=== PATIENT | female | born 1960 | race Caucasian/White ===

== ENCOUNTER 2018-04-09 13:03 | Emergency (ER) | payer OTHER ==
[2018-04-09 13:03] VITALS: BMI 39.5
[2018-04-09 13:19] VITALS: PULSE 70; RESP 16
--- NOTE | 2018-04-09 13:48 | C.PDOC ---
History Of Present Illness 57 yr old female w/ hx of DM2, afib, HLD p/w severe pain and swelling to R breast. Pt notes R breast pain x5d, worsening 2d ago, with throbbing pain to R breast. No recent ABX. PT was seen by PMD: Dr. Haylee Mercado today and was sent here for further eval of Rt. breast. PT notes chills. No abdominal pain, constipation or diarrhea. No chest pain or sob. No headache, nausea or vomiting. No other com Time Seen by Provider: 04/09/18 13:34 Chief Complaint (Nursing): Abnormal Skin Integrity Past Medical History Vital Signs: Last Vital Signs Temp 99.2 F 04/09/18 16:29 Pulse 70 04/09/18 16:29 Resp 16 04/09/18 16:29 BP 146/81 04/09/18 16:29 Pulse Ox 100 04/09/18 16:29 - Medical History PMH: Arthritis, Atrial Fibrillation, Diabetes, HTN, Hypercholesterolemia Denies: Depression, Chronic Kidney Disease Family History: States: Unknown Family Hx - Social History Hx Tobacco Use: No Hx Alcohol Use: No Hx Substance Use: No - Immunization History Hx Tetanus Toxoid Vaccination: Yes (5 YRS AGO) Hx Influenza Vaccination: No Hx Pneumococcal Vaccination: No Review Of Systems Except As Marked, All Systems Reviewed And Found Negative. Constitutional: Positive for: Chills. Negative for: Fever Eyes: Negative for: Pain ENT: Negative for: Ear Pain Cardiovascular: Negative for: Chest Pain Respiratory: Negative for: Cough Gastrointestinal: Negative for: Nausea Genitourinary: Negative for: Dysuria Musculoskeletal: Negative for: Neck Pain Skin: Positive for: Other (pain or R breast) Physical Exam - Physical Exam Appears: Well, Non-toxic, No Acute Distress Skin: Warm, Other (R sided breast 3 oclock, cyst noted, overlying redness, quarter sized, no crepitus. ) Nose: Normal Oral Mucosa: Moist Chest: Symmetrical, No Deformity Cardiovascular: Rhythm Regular Respiratory: Normal Breath Sounds Gastrointestinal/Abdominal: Normal Exam Extremity: Normal ROM, No Tenderness Additional Physical Exam Comments: no meningeal signs ED Course And Treatment - Laboratory Results Result Diagrams: 04/09/18 15:20 04/09/18 15:20 O2 Sat by Pulse Oximetry: 98 Medical Decision Making Medical Decision Makin Yr old female w/ hx of DM2 p/w Mastitis to L breast. No recent abx. Will seek US to see ? Abscess. No d/c from L breast. No recent swimming. Pt notes only pain to breast. NO chest pain. No orthopnea, pnd or leg swelling. US unremarkable- no abscess Mild Leukocytosis w/ out sirs vitals EKG 70, NSR, No stemi. will have pt follow up w/ obgyn and w/ keflex. clear for d/c home Disposition - Disposition Referrals: Kait Michaels MD [Staff Provider] - Disposition: HOME/ ROUTINE Disposition Time: 16:25 Condition: GOOD Additional Instructions: MARILIN BURT, thank you for letting us take care of you today. Your provider was Dio Eller and you were treated for SENT BY PMD. The emergency medical care you received today was directed at your acute symptoms. If you were prescribed any medication, please fill it and take as directed. It may take several days for your symptoms to resolve. Return to the Emergency Department if your symptoms worsen, do not improve, or if you have any other problems. Please contact your doctor or call one of the physicians/clinics you have been referred to that are listed on the Patient Visit Information form that is included in your discharge packet. Bring any paperwork you were given at discharge with you along with any medications you are taking to your follow up visit. Our treatment cannot replace ongoing medical care by a primary care provider outside of the emergency department. Thank you for allowing the [facility] team to be part of your care today. If you had an X-Ray or CT scan: A Radiologist will review the ED reading if any change in treatment is needed we will contact you. If you had a blood, urine, or wound culture: It will take several days for the results, if any change in treatment is needed we will contact you. If you had an STI test: It will take 48 hours for the results. Please call after 1 week if you have not heard back. Prescriptions: Cephalexin [cephalexin] 500 mg PO Q6H 10 Days #40 cap Instructions: Mastitis Forms: [facility] ([place]) - Clinical Impression Clinical Impression: Mastitis in female
--- NOTE | 2018-04-09 14:40 | RAD ---
Date of service: 04/09/2018 HISTORY: R breast pain COMPARISON: No prior. TECHNIQUE: Chest PA and lateral FINDINGS: LUNGS: No active pulmonary disease. PLEURA: No significant pleural effusion identified. No pneumothorax apparent. CARDIOVASCULAR: Normal. OSSEOUS STRUCTURES: No significant abnormalities. VISUALIZED UPPER ABDOMEN: Normal. OTHER FINDINGS: None. IMPRESSION: No active disease.
[2018-04-09 15:23] LABS: BASO # 0.1 K/uL (0.0-0.2); BASO % 0.6 % (0.0-2.0); EOS # 0.1 K/uL (0.0-0.7); EOS % 0.8 % (0.0-4.0); HEMOGLOBIN 10.6 g/dL (11.0-16.0); LYMPH # 1.9 K/uL (1.0-4.3); LYMPH % 15.9 % (20.0-40.0); MEAN CELL VOLUME 79.7 fL (81.0-99.0); MEAN CORPUSCULAR HEMOGLOBIN 26.2 pg (27.0-31.0); MEAN CORPUSCULAR HGB CONC 32.9 g/dL (33.0-37.0); MEAN PLATELET VOLUME 8.2 fL (7.2-11.7); MONO # 1.1 K/uL (0.0-0.8); MONO % 8.9 % (0.0-10.0); NEUT % 73.8 % (50.0-75.0); RBC 4.05 Mil/uL (3.80-5.20); WHITE BLOOD COUNT 12.2 K/uL (4.8-10.8)
[2018-04-09 15:38] LABS: ALB/GLOB RATIO 1.4 (1.0-2.1); ALBUMIN 4.3 g/dL (3.5-5.0); ALT/SGPT 24 U/L (9-52); AST/SGOT 15 U/L (14-36); BLOOD UREA NITROGEN 21 mg/dL (7-17); GFR NON-AFRICAN AMERICAN > 60
--- NOTE | 2018-04-09 16:02 | US ---
Date of service: 04/09/2018 PROCEDURE: Ultrasound examination of right breast HISTORY: ? abscess COMPARISON: Not available TECHNIQUE: Ultrasound examination was performed throughout the inferior half of the right breast and right axilla, utilizing a high-frequency linear array transducer. FINDINGS: There is no solid or cystic mass identified throughout the region evaluated. A morphologically unremarkable axillary lymph node is noted measuring 3.5 cm in greatest dimension. IMPRESSION: No sonographic evidence of abscess or malignancy. BIRADS 1 Negative Recommendation: Continue annual screening mammography, as per ACR guidelines.
[2018-04-09 16:30] VITALS: BP 146/81; TEMP 99.2
[2018-04-09 16:51] VITALS: O2SAT 98
== END 2018-04-09 16:38 | disposition home or self-care (01) ==
LOC: C.ER 13:03
DX: N61.0 Mastitis without abscess (principal); E11.9 Type 2 diabetes mellitus without complications; E78.00 Pure hypercholesterolemia, unspecified; I48.91 Unspecified atrial fibrillation; I10 Essential (primary) hypertension

== ENCOUNTER 2018-08-05 16:09 | Outpatient (CLI) | payer OTHER | END 2018-08-05 16:10 | disposition home or self-care (01) | LOC: C.CTH 16:09 ==